=== PATIENT | male | born 1990 | race Caucasian/White ===

== ENCOUNTER 2016-04-28 14:27 | Emergency (ER) | payer OTHER ==
[~2016-04-28] VITALS: Ht 180.3 cm; Wt 56.7 kg
[~2016-04-28 14:27] MED LIST: OMEP20CA10 PO; ONDA4TAB5 PO
[2016-04-28 15:18] LABS: BASOPHILS # (AUTO) 0.1 /CMM (0.0-0.2); BASOPHILS % (AUTO) 0.6 % (0.0-2.0); DIFF TOTAL % 100 %; EOSINOPHILS % (AUTO) 0.2 % (0.0-6.0); HEMATOCRIT 49 % (39-51); LYMPHOCYTES # (AUTO) 2.2 /CMM (0.8-4.8); LYMPHOCYTES % (AUTO) 23.8 % (20.0-44.0); MEAN CORPUSCULAR HEMOGLOBIN 32 PG (26.0-33.0); MEAN CORPUSCULAR HGB CONC 35 g/dl (31.0-36.0); MEAN CORPUSCULAR VOLUME 90 fL (80-96); MONOCYTES % (AUTO) 10.3 % (2.0-12.0); NEUTROPHILS # (AUTO) 6.1 /CMM (1.8-8.9); NEUTROPHILS % (AUTO) 65.1 % (43.0-81.0); PLATELET COUNT (AUTO) 308 /CMM (150-450); WHITE BLOOD COUNT (AUTO) 9.4 K/uL (4.3-11.0)
[2016-04-28] MEDS ORDERED: IV NS 0.9% 1,000 ML ONE ×2 (15:21→16:50)
[2016-04-28] MEDS ORDERED: METOCLOPRAMIDE HCL 10 MG/2 ML VIAL ONE (15:21)
[2016-04-28] MEDS ORDERED: IV SET PRIMARY 1 EA INFUS.SET MC ONE ×2 (15:21→16:50)
[2016-04-28] MEDS ORDERED: diphenhydrAMINE HCL 50 MG/ML VIAL ONE (15:21)
[2016-04-28] MEDS ORDERED: KETOROLAC TROMETHAMINE 15 MG/ML VIAL ONE (15:21)
[2016-04-28] MEDS ORDERED: IV NS 0.9% 1,000 ML BAG IV ONE ×2 (15:30→17:00)
[2016-04-28] MEDS ORDERED: METOCLOPRAMIDE HCL 10 MG/2 ML VIAL IV ONE (15:30)
[2016-04-28] MEDS ORDERED: diphenhydrAMINE HCL 50 MG/ML VIAL IV ONE (15:30)
[2016-04-28] MEDS ORDERED: KETOROLAC TROMETHAMINE INJ 30 MG/ML VIAL IV ONE (15:30)
[2016-04-28 15:47] LABS: ALBUMIN 5.2 g/dL (3.4-5.0); BILIRUBIN,DIRECT 0.2 mg/dL (0.0-0.2); BILIRUBIN,TOTAL 1.8 mg/dL (0.2-1.0); CALCIUM, SERUM 9.8 mg/dL (8.5-10.1); CREATININE 1.4 mg/dL (0.6-1.3); INDIRECT BILIRUBIN 1.6 mg/dL (0.0-1.1); POTASSIUM 3.6 mmol/L (3.5-5.1); TOTAL PROTEIN, SERUM 9.2 g/dL (6.4-8.2)
[2016-04-28] MEDS ORDERED: MORPHINE SULFATE INJ 4 MG/ML DISP.SYRIN ONE (17:14)
[2016-04-28] MEDS ORDERED: MORPHINE SULFATE INJ 2 MG/ML DISP.SYRIN IV ONE (17:30)
[2016-04-28 17:50] LABS: KETONES,URINE 15 (NEGATIVE); LEUKOCYTE ESTERASE ,URINE Negative (NEGATIVE); PH,URINE 5.5 (5.0-8.0)
[2016-04-28 18:08] LABS: ADD UA MICROSCOPIC YES
[2016-04-28 18:11] LABS: ADD URINE CULTURE NO; RBC,URINE 2-3/HPF /HPF (0-2); WBC,URINE 2-4/HPF /HPF (0-3)
[2016-04-28 18:12] LABS: MUCUS,URINE Moderate /LPF (None Seen)
[2016-04-28 18:35] VITALS: BP 127/78
== END 2016-04-28 18:52 | disposition home or self-care (01) ==
LOC: ER 14:34
DX: G43.A0 Cyclical vomiting, in migraine, not intractable (principal); M54.5 Low back pain; N28.9 Disorder of kidney and ureter, unspecified; R94.4 Abnormal results of kidney function studies; F41.9 Anxiety disorder, unspecified; F31.9 Bipolar disorder, unspecified; F90.9 Attention-deficit hyperactivity disorder, unspecified type; F17.200 Nicotine dependence, unspecified, uncomplicated; Z98.890 Other specified postprocedural states
CPT/HCPCS: 36415; 80048-TC; 80076-TC; 81000-TC; 83690-TC; 85025-TC; J1200; J1885; J2270; J2765; J7030

== ENCOUNTER 2016-05-04 18:53 | Emergency (ER) | payer OTHER | END 2016-05-04 19:36 | disposition left against medical advice (07) | LOC: ER 18:55 | DX: Z53.21 Procedure and treatment not carried out due to patient leaving prior to being seen by health care provider (principal) ==

== ENCOUNTER 2016-05-09 08:59 | Emergency (ER) | payer OTHER ==
[~2016-05-09] VITALS: Ht 180.3 cm; Wt 54.4 kg
[2016-05-09] MEDS ORDERED: MORPHINE SULFATE INJ 4 MG/ML DISP.SYRIN ONE ×2 (09:26→11:37)
[2016-05-09] MEDS ORDERED: ONDANSETRON HCL/PF 4 MG/2 ML VIAL ONE ×2 (09:27→11:37)
[2016-05-09] MEDS ORDERED: PANTOPRAZOLE 40 MG VIAL ONE (09:27)
[2016-05-09] MEDS ORDERED: IV NS 0.9% 1,000 ML ONE (09:27)
[2016-05-09] MEDS ORDERED: IV SET PRIMARY PUMP SET 1 EA INFUS.SET MC ONE (09:27)
[2016-05-09] MEDS ORDERED: IV NS 0.9% 1,000 ML BAG IV ONE (09:30)
[2016-05-09] MEDS ORDERED: MORPHINE SULFATE INJ 2 MG/ML DISP.SYRIN IV ONE ×2 (09:30→11:30)
[2016-05-09] MEDS ORDERED: ONDANSETRON HCL/PF 4 MG/2 ML VIAL IVP ONE ×2 (09:30→11:30)
[2016-05-09] MEDS ORDERED: PANTOPRAZOLE 40 MG VIAL IV ONE (09:30)
[2016-05-09 09:56] LABS: BASOPHILS % (AUTO) 0.2 % (0.0-2.0); DIFF TOTAL % 100 %; EOSINOPHILS % (AUTO) 0.6 % (0.0-6.0); HEMATOCRIT 51 % (39-51); HEMOGLOBIN 17.2 g/dL (13.5-17.5); LYMPHOCYTES # (AUTO) 1.6 /CMM (0.8-4.8); LYMPHOCYTES % (AUTO) 24.9 % (20.0-44.0); MEAN CORPUSCULAR HEMOGLOBIN 31 PG (26.0-33.0); MEAN CORPUSCULAR HGB CONC 34 g/dl (31.0-36.0); MEAN CORPUSCULAR VOLUME 92 fL (80-96); MONOCYTES # (AUTO) 0.5 /CMM (0.1-1.30); NEUTROPHILS # (AUTO) 4.2 /CMM (1.8-8.9); NEUTROPHILS % (AUTO) 66.3 % (43.0-81.0); PLATELET COUNT (AUTO) 265 /CMM (150-450); RED BLOOD CELL COUNT(AUTO) 5.49 MIL/uL (4.5-6.0); WHITE BLOOD COUNT (AUTO) 6.3 K/uL (4.3-11.0)
[2016-05-09 10:07] LABS: CALCIUM, SERUM 10.1 mg/dL (8.5-10.1); CREATININE 1.5 mg/dL (0.6-1.3); POTASSIUM 3.2 mmol/L (3.5-5.1)
[2016-05-09 10:13] LABS: ALBUMIN 4.9 g/dL (3.4-5.0); BILIRUBIN,DIRECT 0.2 mg/dL (0.0-0.2); BILIRUBIN,TOTAL 1.5 mg/dL (0.2-1.0); INDIRECT BILIRUBIN 1.3 mg/dL (0.0-1.1); TOTAL PROTEIN, SERUM 8.9 g/dL (6.4-8.2)
[2016-05-09 10:16] LABS: LACTIC ACID 1.6 mmol/L (0.4-2.0)
[2016-05-09] MEDS ORDERED: diphenhydrAMINE HCL 50 MG/ML VIAL ONE (10:20)
[2016-05-09] MEDS ORDERED: diphenhydrAMINE HCL 50 MG/ML VIAL IV ONE (10:30)
[2016-05-09] MEDS ORDERED: POTASSIUM CHLORIDE 20 MEQ TAB.PRT.SR PO ONE ×2 (10:30→10:48)
[2016-05-09 12:03] VITALS: BP 116/81
== END 2016-05-09 12:05 | disposition home or self-care (01) ==
LOC: ER 09:00
DX: G43.A0 Cyclical vomiting, in migraine, not intractable (principal); E86.0 Dehydration; E87.6 Hypokalemia; F17.210 Nicotine dependence, cigarettes, uncomplicated
CPT/HCPCS: 36415; 80048-TC; 80076-TC; 83605-TC; 83690-TC; 83735-TC; 85025-TC; A4606; C9113; J1200; J2270; J2405; J7030; Z7610

== ENCOUNTER 2016-05-11 11:23 | Emergency (ER) | payer OTHER ==
[~2016-05-11] VITALS: Ht 172.7 cm; Wt 63.5 kg
[2016-05-11] MEDS ORDERED: IV NS 0.9% 2,000 ML ONE (12:29)
[2016-05-11] MEDS ORDERED: MORPHINE SULFATE INJ 4 MG/ML DISP.SYRIN ONE (12:29)
[2016-05-11] MEDS ORDERED: IV SET PRIMARY 1 EA INFUS.SET MC ONE (12:29)
[2016-05-11] MEDS ORDERED: ONDANSETRON HCL/PF 4 MG/2 ML VIAL ONE (12:29)
[2016-05-11] MEDS ORDERED: MORPHINE SULFATE INJ 2 MG/ML DISP.SYRIN IV ONE (12:30)
[2016-05-11] MEDS ORDERED: IV NS 0.9% 1,000 ML BAG IV ONE ×2 (12:30)
[2016-05-11] MEDS ORDERED: ONDANSETRON HCL/PF 4 MG/2 ML VIAL IVP ONE (12:30)
[2016-05-11 12:36] LABS: BASOPHILS # (AUTO) 0.1 /CMM (0.0-0.2); BASOPHILS % (AUTO) 0.7 % (0.0-2.0); DIFF TOTAL % 100 %; EOSINOPHILS # (AUTO) 0.1 /CMM (0.0-0.7); EOSINOPHILS % (AUTO) 1.7 % (0.0-6.0); HEMATOCRIT 47 % (39-51); HEMOGLOBIN 15.3 g/dL (13.5-17.5); LYMPHOCYTES # (AUTO) 1.2 /CMM (0.8-4.8); LYMPHOCYTES % (AUTO) 14.1 % (20.0-44.0); MEAN CORPUSCULAR HEMOGLOBIN 31 PG (26.0-33.0); MEAN CORPUSCULAR HGB CONC 33 g/dl (31.0-36.0); MEAN CORPUSCULAR VOLUME 94 fL (80-96); MONOCYTES # (AUTO) 0.6 /CMM (0.1-1.30); MONOCYTES % (AUTO) 7.2 % (2.0-12.0); NEUTROPHILS # (AUTO) 6.5 /CMM (1.8-8.9); NEUTROPHILS % (AUTO) 76.3 % (43.0-81.0); PLATELET COUNT (AUTO) 189 /CMM (150-450); RED BLOOD CELL COUNT(AUTO) 4.98 MIL/uL (4.5-6.0); WHITE BLOOD COUNT (AUTO) 8.5 K/uL (4.3-11.0)
[2016-05-11 12:48] LABS: CALCIUM, SERUM 9.8 mg/dL (8.5-10.1); CREATININE 1.4 mg/dL (0.6-1.3); INR 1.09 (0.87-1.13); POTASSIUM 3.3 mmol/L (3.5-5.1); PROTHROMBIN TIME 11.4 SECS (9.5-12.7)
[2016-05-11] MEDS ORDERED: IOHEXOL-300 100 ML VIAL IV ONE (12:54)
[2016-05-11] MEDS ORDERED: CT SWABBABLE VALVE TRANS SET 1 EA INFUS.SET MC ONE (12:54)
[2016-05-11] MEDS ORDERED: IV NS 0.9% 250 ML IV ONE (12:54)
[2016-05-11 12:57] LABS: ALBUMIN 4.4 g/dL (3.4-5.0); BILIRUBIN,DIRECT 0.3 mg/dL (0.0-0.2); BILIRUBIN,TOTAL 1.8 mg/dL (0.2-1.0); INDIRECT BILIRUBIN 1.5 mg/dL (0.0-1.1); TOTAL PROTEIN, SERUM 8.6 g/dL (6.4-8.2)
[2016-05-11] MEDS ORDERED: POTASSIUM CHLORIDE 20 MEQ TAB.PRT.SR PO ONE ×2 (13:00→13:01)
[2016-05-11] MEDS ORDERED: HYDROMORPHONE 1 MG/1 ML DISP.SYRIN ONE (13:13)
[2016-05-11] MEDS ORDERED: HYDROMORPHONE 1 MG/1 ML DISP.SYRIN IV ONE (13:30)
[2016-05-11 14:42] VITALS: BP 115/89
== END 2016-05-11 14:44 | disposition home or self-care (01) ==
LOC: ER 11:29
DX: R10.13 Epigastric pain (principal); G43.A0 Cyclical vomiting, in migraine, not intractable; E86.0 Dehydration; N28.9 Disorder of kidney and ureter, unspecified; F17.210 Nicotine dependence, cigarettes, uncomplicated
CPT/HCPCS: 36415; 80048-TC; 80076-TC; 83605-TC; 83690-TC; 85025-TC; 85730-TC; 87040-TC; A4606; J1170; J2270; J2405; J7030; J7050; Q9967; Z7610

== ENCOUNTER 2016-05-16 17:24 | Emergency (ER) | payer OTHER ==
[~2016-05-16] VITALS: Ht 180.3 cm; Wt 54.4 kg
[2016-05-16] MEDS ORDERED: IV NS 0.9% 1,000 ML BAG IV ONE (18:00)
[2016-05-16] MEDS ORDERED: ONDANSETRON HCL/PF 4 MG/2 ML VIAL IVP ONE (18:00)
[2016-05-16] MEDS ORDERED: LORAZEPAM INJ 2 MG/ML VIAL IV ONE (18:00)
[2016-05-16] MEDS ORDERED: DICYCLOMINE HCL INJ 20 MG/2 ML AMPUL IM ONE ×2 (18:00→18:05)
[2016-05-16] MEDS ORDERED: KETOROLAC TROMETHAMINE INJ 30 MG/ML VIAL IV ONE (18:00)
[2016-05-16] MEDS ORDERED: ONDANSETRON HCL/PF 4 MG/2 ML VIAL ONE (18:05)
[2016-05-16] MEDS ORDERED: KETOROLAC TROMETHAMINE 15 MG/ML VIAL ONE (18:05)
[2016-05-16] MEDS ORDERED: IV NS 0.9% 1,000 ML ONE (18:05)
[2016-05-16] MEDS ORDERED: IV SET PRIMARY 1 EA INFUS.SET MC ONE (18:05)
[2016-05-16] MEDS ORDERED: LORAZEPAM INJ 2 MG/ML VIAL ONE (18:06)
[2016-05-16 18:12] LABS: POTASSIUM 4.4 mmol/L (3.5-5.1)
[2016-05-16 18:18] LABS: CALCIUM, SERUM 9.6 mg/dL (8.5-10.1)
[2016-05-16 19:34] VITALS: BP 128/77
== END 2016-05-16 19:35 | disposition home or self-care (01) ==
LOC: ER 17:26
DX: R10.84 Generalized abdominal pain (principal); G43.A0 Cyclical vomiting, in migraine, not intractable; Z76.5 Malingerer [conscious simulation]; F41.9 Anxiety disorder, unspecified; F31.9 Bipolar disorder, unspecified; F90.9 Attention-deficit hyperactivity disorder, unspecified type; K22.70 Barrett's esophagus without dysplasia; F17.200 Nicotine dependence, unspecified, uncomplicated
CPT/HCPCS: 36415; 80048; 96372; 96374; 96375; 99284; A4606; J0500; J1885; J2060; J2405; J7030; Z7610

== ENCOUNTER 2016-05-19 07:28 | Emergency (ER) | payer OTHER ==
[2016-05-19] MEDS ORDERED: ONDANSETRON 4 MG TAB.RAPDIS SL ONE (09:00)
== END 2016-05-19 08:44 | disposition left against medical advice (07) ==
LOC: ER 07:30
DX: R10.84 Generalized abdominal pain (principal); G43.A0 Cyclical vomiting, in migraine, not intractable; F41.9 Anxiety disorder, unspecified; Z76.5 Malingerer [conscious simulation]; F31.9 Bipolar disorder, unspecified; F90.9 Attention-deficit hyperactivity disorder, unspecified type; K22.70 Barrett's esophagus without dysplasia; F17.200 Nicotine dependence, unspecified, uncomplicated
CPT/HCPCS: Z7502

== ENCOUNTER 2016-08-26 10:50 | Inpatient (IN) | payer OTHER ==
[~2016-08-26] VITALS: Ht 180.3 cm; Wt 61.2 kg
[2016-08-26] MEDS ORDERED: IV NS 0.9% 1,000 ML BAG IV ONE (11:30)
[2016-08-26] MEDS ORDERED: MORPHINE SULFATE INJ 4 MG/ML DISP.SYRIN ONE (11:30)
[2016-08-26] MEDS ORDERED: MORPHINE SULFATE INJ 2 MG/ML DISP.SYRIN IV ONE (11:30)
--- NOTE | 2016-08-26 11:30 | NUR ---
PT BIB SELF C/O VIKRAM "KIDNEY PAIN", N/V X "1-2 WEEKS" , AND NO UOP X2 DAYS. BLADDER DOES NOT APPEAR DISTENDED. RESP EVEN UNLABORED. SKIN WARM NONDIAPHORETIC. DENIES BLOOD IN VOMIT. AMBULATORY WITH SLOW GAIT; REQUESTED FOR A WALKER. IN ER BED 09 ON MONITOR.
[2016-08-26] MEDS ORDERED: IV SET PRIMARY 1 EA INFUS.SET MC ONE (11:31)
[2016-08-26] MEDS ORDERED: IV NS 0.9% 1,000 ML ONE (11:31)
[2016-08-26] MEDS ORDERED: LIDOCAINE 2% JEL UROJET 10 ML MM ONE (11:38)
--- NOTE | 2016-08-26 11:48 | NUR ---
BLADDER SCAN DONE; LESS THAN 12ML URINE SHOWN ON SCAN
[2016-08-26 11:49] LABS: LYMPHOCYTES # (AUTO) 1.5 /CMM (0.8-4.8); MONOCYTES # (AUTO) 0.6 /CMM (0.1-1.30); PLATELET COUNT (AUTO) 223 /CMM (150-450)
[2016-08-26 11:52] LABS: BASOPHILS % (AUTO) 0.7 % (0.0-2.0); EOSINOPHILS # (AUTO) 0.1 /CMM (0.0-0.7); EOSINOPHILS % (AUTO) 0.8 % (0.0-6.0); HEMATOCRIT 55 % (39-51); HEMOGLOBIN 18.3 g/dL (13.5-17.5); MEAN CORPUSCULAR HEMOGLOBIN 31 PG (26.0-33.0); MEAN CORPUSCULAR HGB CONC 33 g/dl (31.0-36.0); MEAN CORPUSCULAR VOLUME 93 fL (80-96); MONOCYTES % (AUTO) 9.7 % (2.0-12.0); NEUTROPHILS # (AUTO) 4.1 /CMM (1.8-8.9); NEUTROPHILS % (AUTO) 65.8 % (43.0-81.0); RDW COEFFICIENT OF VARIATION 11.6 (11.5-15.0); RED BLOOD CELL COUNT(AUTO) 5.93 MIL/uL (4.5-6.0); WHITE BLOOD COUNT (AUTO) 6.3 K/uL (4.3-11.0)
--- NOTE | 2016-08-26 11:54 | NUR ---
PT TRANSPORTED TO CT IN STABLE CONDITION
[2016-08-26 11:58] LABS: CALCIUM, SERUM 9.4 mg/dL (8.5-10.1); CREATININE 1.3 mg/dL (0.6-1.3)
[2016-08-26 12:04] LABS: ALBUMIN 4.8 g/dL (3.4-5.0); BILIRUBIN,DIRECT 0.1 mg/dL (0.0-0.2); BILIRUBIN,TOTAL 0.7 mg/dL (0.2-1.0); TOTAL PROTEIN, SERUM 8.9 g/dL (6.4-8.2)
--- NOTE | 2016-08-26 12:28 | NUR ---
DUGGAN CATH 16FR PLACED, DRAINED 15ML CLEAR YELLOW URINE. TOLERATED PROCEDURE WELL.
[2016-08-26 12:32] LABS: APPEARANCE,URINE Clear (CLEAR); BILIRUBIN,URINE SMALL (NEGATIVE); BLOOD, URINE Small Ery/uL (NEGATIVE); COLOR,URINE Yellow (YELLOW); KETONES,URINE Negative (NEGATIVE); LEUKOCYTE ESTERASE ,URINE Negative (NEGATIVE); NITRITE, URINE Negative (NEGATIVE); PH,URINE 5.5 (5.0-8.0); PROTEIN,URINE 30 mg/dl (NEGATIVE); UGLUCOSE Negative (NEGATIVE); UROBILINOGEN,URINE 0.2 EU/dL (0.2)
[2016-08-26 12:40] LABS: LYMPHOCYTES % (MANUAL) 28 % (16-48); MONOCYTES % (MANUAL) 5 % (0-11.0); NEUTROPHILS % (MANUAL) 67 (42-76)
[2016-08-26 12:44] LABS: RBC,URINE 0-3 /HPF (0-2); SQUAMOUS EPITHELIAL CELL,UR Rare /HPF (None Seen); WBC,URINE 0-2 /HPF (0-3)
[2016-08-26 12:45] LABS: BACTERIA,URINE Moderate /HPF (None Seen)
[2016-08-26] MEDS ORDERED: KETOROLAC TROMETHAMINE INJ 30 MG/ML VIAL ONE (12:56)
[2016-08-26] MEDS ORDERED: KETOROLAC TROMETHAMINE INJ 30 MG/ML VIAL IV ONE (13:00)
--- NOTE | 2016-08-26 13:03 | NUR ---
PT STILL C/O PAIN. TORADOL ADMINISTERED PER MD ORDER. VSS.
--- NOTE | 2016-08-26 13:15 | NUR ---
CALLED NURSING SUP. FOR MS BED
--- NOTE | 2016-08-26 13:25 | NUR ---
BALWINDER PAGED, METAL MACHINE OPERATOR
[2016-08-26] MEDS ORDERED: ONDANSETRON HCL/PF 4 MG/2 ML VIAL IV ONE (13:30)
[2016-08-26] MEDS ORDERED: METO-295 PO (13:34)
[2016-08-26] MEDS ORDERED: ONDA8TAB9 PO (13:34)
[2016-08-26] MEDS ORDERED: ALPR1TAB2 PO (13:34)
[2016-08-26] MEDS ORDERED: PROC25SU31 RC (13:34)
[2016-08-26] MEDS ORDERED: SERT25TA PO (13:34)
[2016-08-26 13:44] VITALS: BP 114/71
--- NOTE | 2016-08-26 13:44 | NUR ---
REPORT GIVEN TO MICKEY QUINTANILLA FOR ADMISSION
--- NOTE | 2016-08-26 13:46 | NUR ---
DUGGAN CATH REMOVED PER MD. TOTAL OUTPUT 75ML CLEAR YELLOW URINE.
[2016-08-26] MEDS ORDERED: ONDANSETRON HCL/PF 4 MG/2 ML VIAL ONE (13:51)
[2016-08-26] MEDS ORDERED: PROCHLORPERAZINE MALEATE SUPP 25 MG/SUPP.RECT SUPP.RECT RC PRN ×2 (14:00→14:15)
[2016-08-26] MEDS ORDERED: HYDROCODONE/APAP 5/325MG 1 EACH TABLET PO PRN ×2 (14:00→14:15)
[2016-08-26] MEDS ORDERED: MAG HYDROX/AL HYDROX/SIMETH 30 ML UDC PO PRN ×2 (14:00→14:15)
[2016-08-26] MEDS ORDERED: ACETAMINOPHEN 325 MG TABLET PO PRN ×2 (14:00→14:15)
[2016-08-26] MEDS ORDERED: MAGNESIUM HYDROXIDE 30 ML UDC PO PRN ×2 (14:00→14:15)
[2016-08-26] MEDS ORDERED: ONDANSETRON HCL/PF 4 MG/2 ML VIAL IVP PRN ×2 (14:00→14:15)
[2016-08-26] MEDS ORDERED: Z GUARD REMEDY 2 OZ OINT TP PRN ×2 (14:00→14:15)
[2016-08-26] MEDS ORDERED: IV NS 0.9% 1,000 ML IV SCH (14:00)
[2016-08-26] MEDS ORDERED: ZOLPIDEM TARTRATE 5 MG TABLET PO PRN ×2 (14:00→14:15)
--- NOTE | 2016-08-26 14:03 | NUR ---
PT TRANSPORTED TO [place] IN STABLE CONDITION VIA WHEELCHAIR
[2016-08-26] MEDS ORDERED: IV NS 0.9% 1,000 ML IV PRN (14:15)
--- NOTE | 2016-08-26 14:30 | NUR ---
MS RN NOTES RECEIVED PATIENT FROM ER ALERT, ORIENTED X3 NO SOB OR ACUTE DISTRESS NOTED. COMPLAINS OF BACK PAIN. IV ON LEFT UPPER ARM, INTACT PATENT. BED IN LOW LOCKED POSITION. CALL LIGHT WITHIN REACH. PATIENT ORIENTED TO ROOM. WILL CONTINUE TO MONITOR.
--- NOTE | 2016-08-26 15:00 | NUR ---
MS RN NOTES PATIENT SEEN AND EVALUATED BY DR. COPE ORDERS NOTED AND CARRIED OUT.
[2016-08-26] MEDS ORDERED: IV SET PRIMARY PUMP SET 1 EA INFUS.SET MC ONE (15:03)
[2016-08-26] MEDS ORDERED: MORPHINE SULFATE INJ 2 MG/ML DISP.SYRIN IV PRN (16:30)
[2016-08-26] MEDS ORDERED: METOCLOPRAMIDE HCL 10 MG TABLET PO SCH ×2 (17:00)
[2016-08-26] MEDS ORDERED: ALPRAZOLAM 1 MG TABLET PO SCH ×2 (17:00)
--- NOTE | 2016-08-26 17:30 | NUR ---
MS RN NOTES PATIENT LEFT AMA STATING HE CHOOSES TO LEAVE AMA DUE TO MD NOT PRESCRIBING HIM THE PAIN MEDICATION HE IS ASKING FOR. ADVISED PATIENT AGAINS LEAVING AMA, EDUCATED ON RISKS OF LEAVING AMA. PATIENT REFUSES TO LISTEN. PULLED PERIPHERAL IV OUT. SITE TAPED WITH GAUZE. AMA PAPER SIGNED. DR. COPE MADE AWARE. ID BAND REMOVED. CHARGE NURSE MADE AWARE.
[2016-08-27] MEDS ORDERED: SERTRALINE HCL 25 MG TABLET PO SCH ×2 (09:00)
== END 2016-08-26 17:30 | disposition left against medical advice (07) | DRG 347 ==
LOC: ER 10:53 → MED 14:30
PROVIDERS: ADMIT Family Medicine; ATTEND Family Medicine
DX: M48.06 Spinal stenosis, lumbar region (principal); N17.0 Acute kidney failure with tubular necrosis; K22.70 Barrett's esophagus without dysplasia; E86.0 Dehydration; F31.9 Bipolar disorder, unspecified; F41.9 Anxiety disorder, unspecified; Z79.899 Other long term (current) drug therapy; Z72.0 Tobacco use; G43.A0 Cyclical vomiting, in migraine, not intractable; R33.9 Retention of urine, unspecified; F90.9 Attention-deficit hyperactivity disorder, unspecified type; K59.00 Constipation, unspecified; Z82.3 Family history of stroke; Z82.49 Family history of ischemic heart disease and other diseases of the circulatory system; Z18.10 Retained metal fragments, unspecified; E44.0 Moderate protein-calorie malnutrition; Z68.1 Body mass index [BMI] 19.9 or less, adult
CPT/HCPCS: 36415; 72131-TC; 80048-TC; 80076-TC; 81000-TC; 83690-TC; 85025-TC; 87081-TC; 87086-TC; A4606; J1885; J2270; J2405; J3490; J7030; J8597; Z7610

== ENCOUNTER 2016-11-08 13:55 | Emergency (ER) | payer OTHER ==
[~2016-11-08] VITALS: Ht 180.3 cm; Wt 63.5 kg
[~2016-11-08 13:55] MED LIST changes: +ALPR1TAB2 PO; +METO-295 PO; -OMEP20CA10 PO; -ONDA4TAB5 PO; +ONDA8TAB9 PO; +PROC25SU31 RC; +SERT25TA PO
--- NOTE | 2016-11-08 13:59 | NUR ---
PT CALLED TO TRIAGE, PT IS NOT IN THE WAITING ROOM
--- NOTE | 2016-11-08 14:20 | NUR ---
PT CAME IN FOR C/O NAUSEA AND VOMITING SINCE THIS MORNING "I COULD NOT TAKE MY ATIVAN OR NAUSEA MEDS BECAUSE I KEEP ON VOMITING". VSS. SEEN BY MD FOR EVAL. ORDERS RECEIVED. IV ACCESS STARTED. SAFETY AND COMFORT MEASURES PROVIDED.WILL MONITOR.
[2016-11-08] MEDS ORDERED: IV NS 0.9% 1,000 ML BAG IV ONE (14:30)
[2016-11-08] MEDS ORDERED: ONDANSETRON HCL/PF 4 MG/2 ML VIAL IVP ONE ×2 (14:30→15:30)
[2016-11-08] MEDS ORDERED: ONDANSETRON HCL/PF 4 MG/2 ML VIAL ONE ×2 (14:31→15:25)
[2016-11-08 14:34] LABS: BASOPHILS % (AUTO) 0.4 % (0.0-2.0); EOSINOPHILS # (AUTO) 0.1 /CMM (0.0-0.7); EOSINOPHILS % (AUTO) 0.7 % (0.0-6.0); HEMATOCRIT 47 % (39-51); HEMOGLOBIN 15.7 g/dL (13.5-17.5); LYMPHOCYTES # (AUTO) 1.1 /CMM (0.8-4.8); MEAN CORPUSCULAR HEMOGLOBIN 31 PG (26.0-33.0); MEAN CORPUSCULAR HGB CONC 33 g/dl (31.0-36.0); MEAN CORPUSCULAR VOLUME 93 fL (80-96); MONOCYTES # (AUTO) 0.5 /CMM (0.1-1.30); MONOCYTES % (AUTO) 4.7 % (2.0-12.0); NEUTROPHILS # (AUTO) 9.5 /CMM (1.8-8.9); NEUTROPHILS % (AUTO) 84.2 % (43.0-81.0); PLATELET COUNT (AUTO) 269 /CMM (150-450); RDW COEFFICIENT OF VARIATION 12.8 (11.5-15.0); RED BLOOD CELL COUNT(AUTO) 5.07 MIL/uL (4.5-6.0); WHITE BLOOD COUNT (AUTO) 11.2 K/uL (4.3-11.0)
[2016-11-08 14:46] LABS: CALCIUM, SERUM 9.6 mg/dL (8.5-10.1); POTASSIUM 3.7 mmol/L (3.5-5.1)
[2016-11-08 14:51] LABS: ALBUMIN 5.1 g/dL (3.4-5.0); BILIRUBIN,DIRECT 0.2 mg/dL (0.0-0.2); BILIRUBIN,TOTAL 1.5 mg/dL (0.2-1.0); TOTAL PROTEIN, SERUM 8.8 g/dL (6.4-8.2)
[2016-11-08] MEDS ORDERED: METOCLOPRAMIDE HCL 10 MG/2 ML VIAL ONE (15:25)
[2016-11-08] MEDS ORDERED: METOCLOPRAMIDE HCL 10 MG/2 ML VIAL IV ONE (15:30)
--- NOTE | 2016-11-08 15:40 | NUR ---
PT PULLED OUT IV.
--- NOTE | 2016-11-08 15:42 | NUR ---
PT REFUSED NEW ORDERS FOR MEDS.
--- NOTE | 2016-11-08 15:47 | NUR ---
Patient discharged to home in stable condition. Written and verbal after care instructions given. Patient verbalizes understanding of instruction.
[2016-11-08 15:50] VITALS: BP 142/75
[2016-11-08] MEDS ORDERED: LORAZEPAM INJ 2 MG/ML VIAL IV ONE (16:00)
[2016-11-08] MEDS ORDERED: KETOROLAC TROMETHAMINE INJ 30 MG/ML VIAL IV ONE (16:00)
== END 2016-11-08 15:51 | disposition home or self-care (01) ==
LOC: ER 13:57
DX: G43.A0 Cyclical vomiting, in migraine, not intractable (principal); R39.2 Extrarenal uremia; F12.90 Cannabis use, unspecified, uncomplicated; F90.9 Attention-deficit hyperactivity disorder, unspecified type; K22.70 Barrett's esophagus without dysplasia; F41.9 Anxiety disorder, unspecified; F17.200 Nicotine dependence, unspecified, uncomplicated
CPT/HCPCS: 36415; 80048-TC; 80076-TC; 83690-TC; 85025-TC; A4606; J2405; J2765; J7030; Z7610

== ENCOUNTER 2019-06-25 09:35 | Emergency (ER) | payer MEDICAID, OTHER ==
[~2019-06-25] VITALS: Ht 182.9 cm; Wt 77.1 kg
[2019-06-25 09:45] VITALS: BP 125/60
== END 2019-06-25 10:31 | disposition home or self-care (01) ==
LOC: ER 09:40
DX: R11.2 Nausea with vomiting, unspecified (principal); F41.9 Anxiety disorder, unspecified; F17.200 Nicotine dependence, unspecified, uncomplicated; Z98.890 Other specified postprocedural states; Z79.899 Other long term (current) drug therapy

== ENCOUNTER 2019-06-25 21:53 | Emergency (ER) | payer MEDICAID, OTHER ==
[~2019-06-25] VITALS: Ht 182.9 cm; Wt 79.4 kg
--- NOTE | 2019-06-25 21:59 | NUR ---
BIBRA 889 C/O SI "IM FEELING SI BECAUSE OF SEVERE ABD,WANT TO CUT MY SELF" ON 515 HOLD BY KEYA, PT TO BED 12, SI PRECAUTIONS STARTED, ALL BELONGINGS IN LOCKER FOR SAFETY, SITTER AT BEDSIDE, VSS, PENDING MD REA
--- NOTE | 2019-06-25 22:06 | NUR ---
SEEN AND EXAMINED BY BLAKE SAGASTUME
--- NOTE | 2019-06-25 22:15 | NUR ---
URINAL GIVEN BUT UNABLE TO PROVIDE URINE SPECIMEN THIS TIME.
--- NOTE | 2019-06-25 22:20 | NUR ---
ER PHLEB AT BEDSIDE FOR BLOOD DRAW.
[2019-06-25 22:26] LABS: BASOPHILS # (AUTO) 0.1 /CMM (0.0-0.2); BASOPHILS % (AUTO) 0.8 % (0.0-2.0); EOSINOPHILS % (AUTO) 0.9 % (0.0-6.0); HEMATOCRIT 43 % (39-51); HEMOGLOBIN 14.7 g/dL (13.5-17.5); LYMPHOCYTES # (AUTO) 1.6 /CMM (0.8-4.8); LYMPHOCYTES % (AUTO) 17.8 % (20.0-44.0); MEAN CORPUSCULAR HGB CONC 34 g/dl (31.0-36.0); MEAN CORPUSCULAR VOLUME 94 fL (80-96); MONOCYTES % (AUTO) 10.8 % (2.0-12.0); NEUTROPHILS # (AUTO) 6.5 /CMM (1.8-8.9); NEUTROPHILS % (AUTO) 69.7 % (43.0-81.0); PLATELET COUNT (AUTO) 228 /CMM (150-450); WHITE BLOOD COUNT (AUTO) 9.3 K/uL (4.3-11.0)
[2019-06-25 22:40] LABS: CARBON DIOXIDE 30 mmol/L (21-32); CHLORIDE 103 mmol/L (98-107); CREATININE 1.1 mg/dL (0.6-1.3); GLUCOSE 111 mg/dL (74-106); POTASSIUM 3.5 mmol/L (3.5-5.1); SODIUM SERUM 141 mmol/L (136-145); UREA NITROGEN, BLOOD 25 mg/dL (7-18)
[2019-06-25 22:48] LABS: ACETAMINOPHEN 0 ug/ml (10-30); ALANINE AMINOTRANSFERASE 50 U/L (12-78); ALBUMIN 4.2 g/dL (3.4-5.0); ALCOHOL, BLOOD < 3 mg/dL (0-0); ALKALINE PHOSPHATASE 78 U/L (46-116); ASPARTATE AMINOTRANSFERASE 48 U/L (15-37); BILIRUBIN,DIRECT 0.3 mg/dL (0.0-0.2); BILIRUBIN,TOTAL 1.9 mg/dL (0.2-1.0); SALICYLATE < 0.2 mg/dL (2.8-20.0); TOTAL PROTEIN, SERUM 7.6 g/dL (6.4-8.2)
[2019-06-25 22:49] LABS: APPEARANCE,URINE Clear (CLEAR); BILIRUBIN,URINE SMALL (NEGATIVE); BLOOD, URINE Small Ery/uL (NEGATIVE); COLOR,URINE Amber (YELLOW); KETONES,URINE Trace (NEGATIVE); LEUKOCYTE ESTERASE ,URINE Negative (NEGATIVE); NITRITE, URINE Negative (NEGATIVE); PROTEIN,URINE 30 mg/dl (NEGATIVE); UGLUCOSE Negative (NEGATIVE)
--- NOTE | 2019-06-25 23:13 | NUR ---
CALLED BILLPOSTER SOCORRO PYLE FOR EVALUATION
[2019-06-25 23:18] LABS: BACTERIA,URINE Few /HPF (None Seen); MUCUS,URINE Moderate /LPF (None Seen); RBC,URINE TOO NUMEROUS TO COUN /HPF (0-2); SQUAMOUS EPITHELIAL CELL,UR Rare /HPF (None Seen)
[2019-06-26] MEDS ORDERED: LORAZEPAM 1 MG TABLET ONE (02:29)
[2019-06-26] MEDS ORDERED: LORAZEPAM 1 MG TABLET PO ONE (02:30)
--- NOTE | 2019-06-26 02:40 | NUR ---
Patient discharged to home in stable condition. Written and verbal after care instructions given. Patient verbalizes understanding of instruction.
--- NOTE | 2019-06-26 02:40 | NUR ---
5150 hold broken by dorothy bradshaw crisisteam.
[2019-06-26 02:42] VITALS: BP 126/77
== END 2019-06-26 02:43 | disposition home or self-care (01) ==
LOC: ER 21:53
DX: R45.851 Suicidal ideations (principal); R10.84 Generalized abdominal pain; R11.15 Cyclical vomiting syndrome unrelated to migraine; F41.9 Anxiety disorder, unspecified; Z76.5 Malingerer [conscious simulation]; Z98.890 Other specified postprocedural states; Z79.899 Other long term (current) drug therapy
CPT/HCPCS: 36415; 80048; 80076; 80305; 80307; 80329; 81001; 85025; 99285; G0480; 81000-TC

== ENCOUNTER 2020-07-03 07:28 | Emergency (ER) | payer MEDICAID, OTHER ==
[~2020-07-03] VITALS: Ht 182.9 cm; Wt 59.0 kg
--- NOTE | 2020-07-03 07:28 | NUR ---
PT BIBSELF C/O ABDOMINAL PAIN AND VOMITTING FOR 4 WEEKS PER PT. PT IS AAOX4, NOT IN RESPIRATORY DISTRESS, V/S STABLE, KEPT RESTED AND COMFORTABLE. WILL CONTINUE TO MONITOR.
--- NOTE | 2020-07-03 07:33 | NUR ---
URINE SPECIMEN COLLECTED AND SENT TO LAB.
--- NOTE | 2020-07-03 07:37 | NUR ---
AT BEDSIDE FOR EVAL.
[2020-07-03] MEDS ORDERED: KETOROLAC TROMETHAMINE 15 MG/ML VIAL ONE (07:52)
--- NOTE | 2020-07-03 07:55 | NUR ---
IV LINE ESTABLISHED BLOOD DRAWN AND SENT TO LAB.
[2020-07-03] MEDS ORDERED: IV NS 0.9% 1,000 ML BAG IV ONE (08:00)
[2020-07-03] MEDS ORDERED: KETOROLAC TROMETHAMINE INJ 30 MG/ML VIAL IV ONE (08:00)
[2020-07-03 08:07] LABS: BASOPHILS # (AUTO) 0.1 /CMM (0.0-0.2); EOSINOPHILS % (AUTO) 0.9 % (0.0-6.0); HEMATOCRIT 40 % (39-51); HEMOGLOBIN 13.7 g/dL (13.5-17.5); LYMPHOCYTES # (AUTO) 1.8 /CMM (0.8-4.8); LYMPHOCYTES % (AUTO) 23.3 % (20.0-44.0); MEAN CORPUSCULAR HGB CONC 34 g/dl (31.0-36.0); MEAN CORPUSCULAR VOLUME 91 fL (80-96); MONOCYTES # (AUTO) 0.6 /CMM (0.1-1.30); MONOCYTES % (AUTO) 7.4 % (2.0-12.0); NEUTROPHILS # (AUTO) 5.4 /CMM (1.8-8.9); NEUTROPHILS % (AUTO) 67.4 % (43.0-81.0); PLATELET COUNT (AUTO) 296 /CMM (150-450); RED BLOOD CELL COUNT(AUTO) 4.44 MIL/uL (4.5-6.0); WHITE BLOOD COUNT (AUTO) 7.9 K/uL (4.3-11.0)
[2020-07-03 08:09] LABS: BILIRUBIN,URINE SMALL (NEGATIVE); COLOR,URINE DARK YELLOW (YELLOW); LEUKOCYTE ESTERASE ,URINE NEGATIVE (NEGATIVE); NITRITE, URINE NEGATIVE (NEGATIVE); PROTEIN,URINE 30 mg/dl (NEGATIVE); UGLUCOSE 100 MG/DL mg/dL (NEGATIVE); UROBILINOGEN,URINE 0.2 EU/dL (0.2)
--- NOTE | 2020-07-03 08:13 | NUR ---
PT IS WHEELED TO CT SCAN VIA [facility].
[2020-07-03 08:17] LABS: BACTERIA,URINE Rare /HPF (None Seen); RBC,URINE 0-3 /HPF (0-2); SQUAMOUS EPITHELIAL CELL,UR Rare /HPF (None Seen); WBC,URINE 0-2 /HPF (0-3)
[2020-07-03 08:19] LABS: CALCIUM, SERUM 9.5 mg/dL (8.5-10.1); CREATININE 1.3 mg/dL (0.6-1.3); POTASSIUM 3.2 mmol/L (3.5-5.1)
[2020-07-03 08:25] LABS: BILIRUBIN,DIRECT 0.2 mg/dL (0.0-0.2); BILIRUBIN,TOTAL 0.7 mg/dL (0.2-1.0); TOTAL PROTEIN, SERUM 7.7 g/dL (6.4-8.2)
[2020-07-03] MEDS ORDERED: HYDROCODONE/APAP 5/325MG TABLET ONE (09:27)
[2020-07-03] MEDS ORDERED: HYDROCODONE/APAP 5/325MG TABLET PO ONE (09:30)
--- NOTE | 2020-07-03 09:33 | NUR ---
IV removed. Catheter intact and site benign. Pressure and 4x4 applied to site. No bleeding noted. Patient discharged to home in stable condition. Written and verbal after care instructions given. Patient verbalizes understanding of instruction.
[2020-07-03 09:34] VITALS: BP 110/72
== END 2020-07-03 09:34 | disposition home or self-care (01) ==
LOC: ER 07:32
DX: R10.84 Generalized abdominal pain (principal); G89.29 Other chronic pain; R11.2 Nausea with vomiting, unspecified; F41.9 Anxiety disorder, unspecified; F17.200 Nicotine dependence, unspecified, uncomplicated; R00.0 Tachycardia, unspecified; Z98.890 Other specified postprocedural states; Z79.899 Other long term (current) drug therapy
CPT/HCPCS: 36415; 74176; 80048; 80076; 81001; 83605; 83690; 85025; 87086; 96361; 96374; 99284; J1885; J7030

== ENCOUNTER 2021-08-19 13:56 | Emergency (ER) | payer OTHER ==
--- NOTE | 2021-08-19 14:12 | NUR ---
CALLED TO TRIAGE NO ANSWER.
--- NOTE | 2021-08-19 14:21 | NUR ---
CALLED TO TRIAGE NO ANSWER.
--- NOTE | 2021-08-19 14:30 | NUR ---
CALLED TO TRIAGE NO ANSWER.
--- NOTE | 2021-08-19 14:33 | NUR ---
LEFT BEFORE TRIAGE ASSESSMENT.
== END 2021-08-19 14:33 | disposition left against medical advice (07) ==
LOC: ER 14:00
DX: Z53.21 Procedure and treatment not carried out due to patient leaving prior to being seen by health care provider (principal)

== ENCOUNTER 2023-01-17 17:33 | Emergency (ER) | payer OTHER ==
[~2023-01-17] VITALS: Ht 182.9 cm; Wt 64.4 kg
[2023-01-17 18:54] LABS: BASOPHILS # (AUTO) 0.1 K/uL (0.0-0.2); EOSINOPHILS # (AUTO) 0.1 K/uL (0.0-0.7); EOSINOPHILS % (AUTO) 1.1 % (0.0-6.0); HEMATOCRIT 37 % (39-51); HEMOGLOBIN 12.7 g/dL (13.5-17.5); LYMPHOCYTES # (AUTO) 2.9 K/uL (0.8-4.8); LYMPHOCYTES % (AUTO) 40.5 % (20.0-44.0); MEAN CORPUSCULAR HEMOGLOBIN 31 PG (26.0-33.0); MEAN CORPUSCULAR HGB CONC 34 g/dl (31.0-36.0); MEAN CORPUSCULAR VOLUME 90 fL (80-96); MONOCYTES # (AUTO) 0.7 K/uL (0.1-1.30); MONOCYTES % (AUTO) 10.3 % (2.0-12.0); NEUTROPHILS # (AUTO) 3.4 K/uL (1.8-8.9); NEUTROPHILS % (AUTO) 47.1 % (43.0-81.0); PLATELET COUNT (AUTO) 279 K/uL (150-450); RED BLOOD CELL COUNT(AUTO) 4.13 MIL/uL (4.5-6.0); RED CELL DISTRIBUTION WIDTH 13.1 % (11.5-15.0); WHITE BLOOD COUNT (AUTO) 7.2 K/uL (4.3-11.0)
[2023-01-17 19:08] LABS: CALCIUM, SERUM 8.8 mg/dL (8.5-10.1); CREATININE 1.1 mg/dL (0.6-1.3); POTASSIUM 3.6 mmol/L (3.5-5.1)
[2023-01-17 19:18] LABS: BILIRUBIN,DIRECT 0.1 mg/dL (0.0-0.2); BILIRUBIN,TOTAL 0.4 mg/dL (0.2-1.0); TOTAL PROTEIN, SERUM 7.3 g/dL (6.4-8.2)
[2023-01-17 20:12] VITALS: BP 125/75; TEMP 98.4; O2SAT 100
== END 2023-01-17 20:11 | disposition home or self-care (01) ==
LOC: ER 17:33
DX: M79.671 Pain in right foot (principal); F41.9 Anxiety disorder, unspecified; F17.200 Nicotine dependence, unspecified, uncomplicated; Z98.890 Other specified postprocedural states; Z79.899 Other long term (current) drug therapy
CPT/HCPCS: 36415; 80048-TC; 80076-TC; 85025-TC